=== PATIENT | male | born 1930 | race Caucasian/White ===

== ENCOUNTER 2018-08-09 01:18 | Inpatient (IN) | payer MEDICAID, MEDICARE ==
[2018-08-09] VITALS (22 sets, daily range): BP systolic 85–149; BP diastolic 43–84
[~2018-08-09] VITALS: Ht 175.3 cm; Wt 62.6 kg
[2018-08-09] MEDS ORDERED: DILTIAZEM HCL 50 MG IV ONE (01:50)
[2018-08-09] MEDS ORDERED: DILTIAZEM HCL 25 MG IV ONE (01:51)
[2018-08-09] MEDS ORDERED: DILTIAZEM HCL 50 MG IV IV ONE (02:00)
[2018-08-09] MEDS ORDERED: DILTIAZEM HCL IV 125 MG in IV NS 0.9% 100 ML IV PRN ×2 (02:00→03:00)
[2018-08-09 02:01] LABS: BASOPHILS % (AUTO) 0.5 % (0.0-2.0); EOSINOPHILS % (AUTO) 2.5 % (0.0-6.0); HEMATOCRIT 41 % (39-51); HEMOGLOBIN 13.7 g/dL (13.5-17.5); LYMPHOCYTES % (AUTO) 11.5 % (20.0-44.0); MEAN CORPUSCULAR HGB CONC 34 g/dl (31.0-36.0); MEAN CORPUSCULAR VOLUME 93 fL (80-96); MONOCYTES # (AUTO) 0.7 /CMM (0.1-1.30); MONOCYTES % (AUTO) 7.9 % (2.0-12.0); NEUTROPHILS # (AUTO) 6.6 /CMM (1.8-8.9); NEUTROPHILS % (AUTO) 77.6 % (43.0-81.0); PLATELET COUNT (AUTO) 288 /CMM (150-450); RED BLOOD CELL COUNT(AUTO) 4.41 MIL/uL (4.5-6.0); WHITE BLOOD COUNT (AUTO) 8.4 K/uL (4.3-11.0)
[2018-08-09 02:23] LABS: ALANINE AMINOTRANSFERASE 57 U/L (12-78); ALBUMIN 3.7 g/dL (3.4-5.0); ALKALINE PHOSPHATASE 93 U/L (46-116); ASPARTATE AMINOTRANSFERASE 42 U/L (15-37); B-TYPE NATRIURETIC PEPTIDE 17144 PG/ML (0-125); BILIRUBIN,DIRECT 0.1 mg/dL (0.0-0.2); BILIRUBIN,TOTAL 0.5 mg/dL (0.2-1.0); CALCIUM, SERUM 9.5 mg/dL (8.5-10.1); CARBON DIOXIDE 23 mmol/L (21-32); CHLORIDE 104 mmol/L (98-107); CREATININE 1.5 mg/dL (0.6-1.3); GLUCOSE 156 mg/dL (74-106); POTASSIUM 5.1 mmol/L (3.5-5.1); SODIUM SERUM 140 mmol/L (136-145); TOTAL PROTEIN, SERUM 8.3 g/dL (6.4-8.2); UREA NITROGEN, BLOOD 43 mg/dL (7-18)
[2018-08-09] MEDS ORDERED: IV NS 0.9% 1,000 ML IV PRN (02:39)
[2018-08-09] MEDS ORDERED: LORAZEPAM INJ 2 MG/ML VIAL ONE (02:42)
[2018-08-09] MEDS ORDERED: MAGNESIUM HYDROXIDE 30 ML UDC PO PRN (03:00)
[2018-08-09] MEDS ORDERED: ASPIRIN 325 MG TABLET PO ONE (03:00)
[2018-08-09] MEDS ORDERED: LORAZEPAM INJ 2 MG/ML VIAL IV PRN (03:00)
[2018-08-09] MEDS ORDERED: LORAZEPAM INJ 2 MG/ML VIAL IV ONE (03:00)
[2018-08-09] MEDS ORDERED: ACETAMINOPHEN 325 MG TABLET PO PRN (03:00)
[2018-08-09] MEDS ORDERED: MAG HYDROX/AL HYDROX/SIMETH 30 ML UDC PO PRN (03:00)
[2018-08-09] MEDS ORDERED: ASPIRIN 325 MG TABLET ONE (03:11)
[2018-08-09 03:15] LABS: MAGNESIUM 2.2 mg/dL (1.8-2.4); PHOSPHORUS 3.9 mg/dL (2.5-4.9)
[2018-08-09] MEDS ORDERED: ASPIRIN 300 MG/SUPP.RECT RC ONE ×2 (03:19→03:30)
[2018-08-09] MEDS: PANTOPRAZOLE 40 MG TABLET.DR PO SCH (07:30)
[2018-08-09] MEDS ORDERED: AMIODARONE 900 MG in IV D5W 500 ML IV PRN (09:30)
[2018-08-09] MEDS ORDERED: AMIODARONE 150 MG in IV D5W 100 ML IV ONE (09:30)
[2018-08-09] MEDS ORDERED: ACET-73 PO (09:33)
[2018-08-09] MEDS ORDERED: NA P133E RC (09:33)
[2018-08-09] MEDS ORDERED: ATOR20TA PO (09:33)
[2018-08-09] MEDS ORDERED: FERR325T23 PO (09:33)
[2018-08-09] MEDS ORDERED: ACET325T53 PO (09:33)
[2018-08-09] MEDS ORDERED: MULT-213 PO (09:33)
[2018-08-09] MEDS ORDERED: BISA10SU61 RC (09:33)
[2018-08-09] MEDS ORDERED: LISI10TA5 PO (09:33)
[2018-08-09] MEDS ORDERED: MAGN400O6 PO (09:33)
[2018-08-09] MEDS ORDERED: AMIODARONE 900 MG in IV D5W 482 ML IV PRN ×4 (11:00)
[2018-08-09 12:28] LABS: ABG BASE EXCESS -6.1 mmol/L; ABG OXYGEN SATURATION 91.7 % (92.0-98.5); ABG PCO2 29.5 mmHg (35.0-45.0); ABG PH 7.392 (7.350-7.450); ABG PO2 67.7 mmHg (75.0-100.0); AaDO2 125.9 mmHg; MetHb 0.1 % (0.0-1.5); O2Hb 90.7 % (94.0-97.0); SITE, ABG Right Radial; VENT MODE, BG NASAL CANNULA
[2018-08-09] MEDS ORDERED: HEPARIN SODIUM, PORCINE 5000 UNITS/1 ML VIAL SQ SCH (13:00)
[2018-08-09] MEDS ORDERED: IOHEXOL-350 100 ML VIAL IV ONE (13:20)
[2018-08-09] MEDS ORDERED: IV NS 0.9% 250 ML IV ONE (13:20)
[2018-08-09] MEDS: IV D5/ 0.9% NACL 1,000 ML IV PRN (13:58)
[2018-08-09] MEDS ORDERED: ENOXAPARIN SODIUM 60 MG/0.6 ML DISP.SYRIN SQ SCH (14:00)
[2018-08-09] MEDS: LEVOFLOXACIN 750 MG /D5W 150ML 150 ML IV SCH (16:00)
[2018-08-09] MEDS: ONDANSETRON HCL/PF 4 MG/2 ML VIAL IVP PRN (20:09)
[2018-08-10] VITALS (33 sets, daily range): BP systolic 97–164; BP diastolic 46–77
[2018-08-10] MEDS: IV D5/ 0.9% NACL 1,000 ML IV PRN (01:07)
[2018-08-10 04:48] LABS: BASOPHILS % (AUTO) 0.3 % (0.0-2.0); HEMATOCRIT 39 % (39-51); HEMOGLOBIN 12.5 g/dL (13.5-17.5); LYMPHOCYTES # (AUTO) 0.3 /CMM (0.8-4.8); LYMPHOCYTES % (AUTO) 1.6 % (20.0-44.0); MEAN CORPUSCULAR HGB CONC 32 g/dl (31.0-36.0); MEAN CORPUSCULAR VOLUME 94 fL (80-96); MONOCYTES # (AUTO) 1.4 /CMM (0.1-1.30); NEUTROPHILS # (AUTO) 14.3 /CMM (1.8-8.9); NEUTROPHILS % (AUTO) 89.1 % (43.0-81.0); PLATELET COUNT (AUTO) 169 /CMM (150-450); RED BLOOD CELL COUNT(AUTO) 4.13 MIL/uL (4.5-6.0)
[2018-08-10 05:26] LABS: ALBUMIN 3.1 g/dL (3.4-5.0); ALKALINE PHOSPHATASE 75 U/L (46-116); BILIRUBIN,TOTAL 1.1 mg/dL (0.2-1.0); CALCIUM, SERUM 8.6 mg/dL (8.5-10.1); CARBON DIOXIDE 16 mmol/L (21-32); CHLORIDE 106 mmol/L (98-107); CREATININE 2.7 mg/dL (0.6-1.3); GLUCOSE 197 mg/dL (74-106); MAGNESIUM 2.4 mg/dL (1.8-2.4); PHOSPHORUS 5.7 mg/dL (2.5-4.9); POTASSIUM 6.1 mmol/L (3.5-5.1); SODIUM SERUM 138 mmol/L (136-145); TOTAL PROTEIN, SERUM 6.9 g/dL (6.4-8.2); UREA NITROGEN, BLOOD 53 mg/dL (7-18)
[2018-08-10 05:48] LABS: ALANINE AMINOTRANSFERASE 1547 U/L (12-78); ASPARTATE AMINOTRANSFERASE 2963 U/L (15-37)
[2018-08-10] MEDS: PANTOPRAZOLE 40 MG TABLET.DR PO SCH (07:30)
[2018-08-10 07:56] LABS: ABG BASE EXCESS -12.1 mmol/L; ABG OXYGEN SATURATION 95.5 % (92.0-98.5); ABG PCO2 25.7 mmHg (35.0-45.0); ABG PH 7.306 (7.350-7.450); ABG PO2 90.2 mmHg (75.0-100.0); AaDO2 107.9 mmHg; COHb 0.4 % (0.5-1.5); MetHb 0.5 % (0.0-1.5); O2Hb 94.6 % (94.0-97.0); SITE, ABG Right Femoral; VENT MODE, BG 3LNC
[2018-08-10] MEDS: HEPARIN SODIUM, PORCINE 5000 UNITS/1 ML VIAL SQ SCH ×2 (09:26→23:45)
[2018-08-10] MEDS ORDERED: IV NS 0.9% 1,000 ML IV PRN (09:30)
[2018-08-10] MEDS ORDERED: FUROSEMIDE 100 MG/10 ML VIAL IV ONE (10:30)
[2018-08-10] MEDS: ONDANSETRON HCL/PF 4 MG/2 ML VIAL IVP PRN (10:32)
[2018-08-10] MEDS ORDERED: SODIUM POLYSTYRENE SULFONATE 15 G/60 ML BOTTLE PO ONE (11:00)
[2018-08-10] MEDS: Sodium Bicarbonate 100 MEQ in IV 1/2NS 1000 ML 1,000 ML IV PRN ×2 (12:33→22:38)
[2018-08-10 13:39] LABS: ABG BASE EXCESS -9.9 mmol/L; ABG OXYGEN SATURATION 94.2 % (92.0-98.5); ABG PCO2 28.5 mmHg (35.0-45.0); ABG PH 7.329 (7.350-7.450); ABG PO2 82.8 mmHg (75.0-100.0); AaDO2 83.2 mmHg; COHb 0.4 % (0.5-1.5); MetHb 0.4 % (0.0-1.5); O2Hb 93.4 % (94.0-97.0); SITE, ABG Right Radial; VENT MODE, BG 2LNC
[2018-08-10 14:01] LABS: APPEARANCE,URINE TURBID (CLEAR); BILIRUBIN,URINE NEGATIVE (NEGATIVE); BLOOD, URINE 3+ Ery/uL (NEGATIVE); COLOR,URINE DARK YELLO (YELLOW); KETONES,URINE 1+ (NEGATIVE); LEUKOCYTE ESTERASE ,URINE TRACE (NEGATIVE); NITRITE, URINE POSITIVE (NEGATIVE); PH,URINE 5.5 (5.0-8.0); PROTEIN,URINE 3+ mg/dl (NEGATIVE); UGLUCOSE NEGATIVE (NEGATIVE)
[2018-08-10 14:26] LABS: CALCIUM, SERUM 8.7 mg/dL (8.5-10.1); CARBON DIOXIDE 15 mmol/L (21-32); CHLORIDE 106 mmol/L (98-107); CREATININE 3.2 mg/dL (0.6-1.3); GLUCOSE 125 mg/dL (74-106); SODIUM SERUM 140 mmol/L (136-145); UREA NITROGEN, BLOOD 64 mg/dL (7-18)
[2018-08-10 14:27] LABS: POTASSIUM 6.6 mmol/L (3.5-5.1)
[2018-08-10 14:27] LABS: CREATININE, URINE 35.5 MG/DL (30.0-125.0); URINE TOTAL PROTEIN 323.9 mg/dL (0-11.9)
[2018-08-10 15:58] LABS: BACTERIA,URINE Few /HPF (None Seen); RBC,URINE TOO NUMEROUS TO COUN /HPF (0-2); SQUAMOUS EPITHELIAL CELL,UR Rare /HPF (None Seen)
[2018-08-10 17:24] LABS: EOSINOPHIL,URINE None Seen
[2018-08-10] MEDS ORDERED: SODIUM BICARBONATE SYR 50 MEQ/50 ML DISP.SYRIN ONE (22:14)
[2018-08-11] VITALS (39 sets, daily range): BP systolic 110–164; BP diastolic 37–119
[2018-08-11 04:46] LABS: BASOPHILS % (AUTO) 0.2 % (0.0-2.0); HEMATOCRIT 32 % (39-51); HEMOGLOBIN 10.8 g/dL (13.5-17.5); LYMPHOCYTES # (AUTO) 0.4 /CMM (0.8-4.8); LYMPHOCYTES % (AUTO) 2.9 % (20.0-44.0); MEAN CORPUSCULAR HGB CONC 33 g/dl (31.0-36.0); MEAN CORPUSCULAR VOLUME 92 fL (80-96); MONOCYTES # (AUTO) 0.8 /CMM (0.1-1.30); MONOCYTES % (AUTO) 5.8 % (2.0-12.0); NEUTROPHILS # (AUTO) 12.8 /CMM (1.8-8.9); NEUTROPHILS % (AUTO) 91.1 % (43.0-81.0); PLATELET COUNT (AUTO) 110 /CMM (150-450); RED BLOOD CELL COUNT(AUTO) 3.52 MIL/uL (4.5-6.0)
[2018-08-11 04:56] LABS: CREATINE KINASE, TOTAL 300 U/L (39-308)
[2018-08-11 05:00] LABS: ALBUMIN 2.9 g/dL (3.4-5.0); ALKALINE PHOSPHATASE 72 U/L (46-116); BILIRUBIN,TOTAL 0.9 mg/dL (0.2-1.0); CALCIUM, SERUM 7.8 mg/dL (8.5-10.1); CARBON DIOXIDE 26 mmol/L (21-32); CHLORIDE 103 mmol/L (98-107); CREATININE 2.8 mg/dL (0.6-1.3); GLUCOSE 97 mg/dL (74-106); MAGNESIUM 1.9 mg/dL (1.8-2.4); PHOSPHORUS 4.6 mg/dL (2.5-4.9); SODIUM SERUM 140 mmol/L (136-145); TOTAL PROTEIN, SERUM 5.8 g/dL (6.4-8.2); UREA NITROGEN, BLOOD 50 mg/dL (7-18)
[2018-08-11 05:23] LABS: ALANINE AMINOTRANSFERASE 6330 U/L (12-78); ASPARTATE AMINOTRANSFERASE 13232 U/L (15-37)
[2018-08-11] MEDS ORDERED: Z GUARD REMEDY 2 OZ OINT TP PRN (08:30)
[2018-08-11 08:35] LABS: ABG BASE EXCESS 3.2 mmol/L; ABG PCO2 35.3 mmHg (35.0-45.0); ABG PH 7.491 (7.350-7.450); ABG PO2 76.3 mmHg (75.0-100.0); AaDO2 81.7 mmHg; COHb 0.4 % (0.5-1.5); MetHb 0.7 % (0.0-1.5); SITE, ABG Right Radial; VENT MODE, BG nasal cannula
[2018-08-11] MEDS: PANTOPRAZOLE 40 MG TABLET.DR PO SCH (08:53)
[2018-08-11] MEDS: HEPARIN SODIUM, PORCINE 5000 UNITS/1 ML VIAL SQ SCH ×2 (08:54→22:17)
[2018-08-11] MEDS: Z GUARD REMEDY 2 OZ OINT TP SCH (08:55)
[2018-08-11 12:35] LABS: ABG BASE EXCESS -0.1 mmol/L; ABG OXYGEN SATURATION 95.3 % (92.0-98.5); ABG PCO2 35.5 mmHg (35.0-45.0); ABG PH 7.442 (7.350-7.450); ABG PO2 85.8 mmHg (75.0-100.0); COHb 0.5 % (0.5-1.5); MetHb 0.6 % (0.0-1.5); O2Hb 94.3 % (94.0-97.0); SITE, ABG Right Radial; VENT MODE, BG NASAL CANNULA
[2018-08-11] MEDS: LEVOFLOXACIN 750 MG /D5W 150ML 150 ML IV SCH (14:13)
[2018-08-12] VITALS (34 sets, daily range): BP systolic 119–161; BP diastolic 44–109
[2018-08-12 05:12] LABS: BASOPHILS % (AUTO) 0.1 % (0.0-2.0); EOSINOPHILS % (AUTO) 0.3 % (0.0-6.0); HEMATOCRIT 34 % (39-51); HEMOGLOBIN 11.3 g/dL (13.5-17.5); LYMPHOCYTES # (AUTO) 0.3 /CMM (0.8-4.8); LYMPHOCYTES % (AUTO) 3.3 % (20.0-44.0); MEAN CORPUSCULAR HGB CONC 34 g/dl (31.0-36.0); MEAN CORPUSCULAR VOLUME 92 fL (80-96); MONOCYTES # (AUTO) 0.7 /CMM (0.1-1.30); MONOCYTES % (AUTO) 7.4 % (2.0-12.0); NEUTROPHILS # (AUTO) 8.6 /CMM (1.8-8.9); NEUTROPHILS % (AUTO) 88.9 % (43.0-81.0); PLATELET COUNT (AUTO) 66 /CMM (150-450); RED BLOOD CELL COUNT(AUTO) 3.67 MIL/uL (4.5-6.0); WHITE BLOOD COUNT (AUTO) 9.7 K/uL (4.3-11.0)
[2018-08-12 05:29] LABS: ALBUMIN 2.7 g/dL (3.4-5.0); ALKALINE PHOSPHATASE 77 U/L (46-116); ASPARTATE AMINOTRANSFERASE 1890 U/L (15-37); BILIRUBIN,TOTAL 1.1 mg/dL (0.2-1.0); CALCIUM, SERUM 7.6 mg/dL (8.5-10.1); CARBON DIOXIDE 27 mmol/L (21-32); CHLORIDE 104 mmol/L (98-107); CREATININE 2.3 mg/dL (0.6-1.3); GLUCOSE 95 mg/dL (74-106); PHOSPHORUS 3.1 mg/dL (2.5-4.9); SODIUM SERUM 140 mmol/L (136-145); TOTAL PROTEIN, SERUM 5.6 g/dL (6.4-8.2); UREA NITROGEN, BLOOD 44 mg/dL (7-18)
[2018-08-12 06:14] LABS: BAND % (MANUAL) 1 % (0.0-5.0); LYMPHOCYTES % (MANUAL) 3 % (16-48); MONOCYTES % (MANUAL) 3 % (0-11.0); MYELOCYTES % 1 % (0-0); NEUTROPHILS % (MANUAL) 92 (42-76)
[2018-08-12 06:37] LABS: ALANINE AMINOTRANSFERASE 3818 U/L (12-78)
[2018-08-12] MEDS: PANTOPRAZOLE 40 MG TABLET.DR PO SCH (08:21)
[2018-08-12] MEDS: Z GUARD REMEDY 2 OZ OINT TP SCH (09:30)
[2018-08-12] MEDS: HEPARIN SODIUM, PORCINE 5000 UNITS/1 ML VIAL SQ SCH ×2 (09:30→20:54)
[2018-08-12] MEDS: GLUCERNA SHAKE 237 ML CAN PO SCH (20:55)
[2018-08-13] VITALS (47 sets, daily range): BP systolic 99–168; BP diastolic 48–106
[2018-08-13] MEDS ORDERED: DILTIAZEM HCL 50 MG IV ONE ×2 (00:21→01:40)
[2018-08-13] MEDS ORDERED: DILTIAZEM HCL IV 125 MG in IV D5W 100 ML IV PRN (00:30)
[2018-08-13] MEDS ORDERED: DILTIAZEM HCL 25 MG IV IV ONE (00:30)
[2018-08-13] MEDS ORDERED: LORAZEPAM INJ 2 MG/ML VIAL IV ONE (00:30)
[2018-08-13] MEDS ORDERED: DILTIAZEM HCL 25 MG IV ONE ×2 (01:37→01:40)
[2018-08-13 04:36] LABS: BASOPHILS % (AUTO) 0.1 % (0.0-2.0); EOSINOPHILS % (AUTO) 1.9 % (0.0-6.0); HEMATOCRIT 34 % (39-51); HEMOGLOBIN 11.5 g/dL (13.5-17.5); LYMPHOCYTES # (AUTO) 0.4 /CMM (0.8-4.8); MEAN CORPUSCULAR HGB CONC 34 g/dl (31.0-36.0); MEAN CORPUSCULAR VOLUME 92 fL (80-96); MONOCYTES # (AUTO) 0.8 /CMM (0.1-1.30); MONOCYTES % (AUTO) 10.5 % (2.0-12.0); NEUTROPHILS # (AUTO) 5.9 /CMM (1.8-8.9); NEUTROPHILS % (AUTO) 82.5 % (43.0-81.0); RED BLOOD CELL COUNT(AUTO) 3.72 MIL/uL (4.5-6.0); WHITE BLOOD COUNT (AUTO) 7.2 K/uL (4.3-11.0)
[2018-08-13 04:58] LABS: CALCIUM, SERUM 7.7 mg/dL (8.5-10.1); CARBON DIOXIDE 28 mmol/L (21-32); CHLORIDE 106 mmol/L (98-107); CREATININE 1.6 mg/dL (0.6-1.3); GLUCOSE 111 mg/dL (74-106); MAGNESIUM 1.9 mg/dL (1.8-2.4); PHOSPHORUS 2.4 mg/dL (2.5-4.9); POTASSIUM 3.8 mmol/L (3.5-5.1); SODIUM SERUM 142 mmol/L (136-145); UREA NITROGEN, BLOOD 33 mg/dL (7-18)
[2018-08-13 05:05] LABS: PLATELET COUNT (AUTO) 42 /CMM (150-450)
[2018-08-13 05:11] LABS: BAND % (MANUAL) 2 % (0.0-5.0); EOSINOPHILS % (MANUAL) 3 % (0-4); LYMPHOCYTES % (MANUAL) 5 % (16-48); MONOCYTES % (MANUAL) 10 % (0-11.0); NEUTROPHILS % (MANUAL) 80 (42-76)
[2018-08-13] MEDS: GLUCERNA SHAKE 237 ML CAN PO SCH ×3 (08:00→16:27)
[2018-08-13] MEDS: PANTOPRAZOLE 40 MG TABLET.DR PO SCH (08:28)
[2018-08-13] MEDS: Z GUARD REMEDY 2 OZ OINT TP SCH (08:30)
[2018-08-13] MEDS: HEPARIN SODIUM, PORCINE 5000 UNITS/1 ML VIAL SQ SCH (08:36)
[2018-08-13] MEDS: NITROGLYCERIN 30 GM TUBE TP SCH ×2 (09:00→20:48)
[2018-08-13 10:57] LABS: ALBUMIN 2.6 g/dL (3.4-5.0); BILIRUBIN,DIRECT 0.5 mg/dL (0.0-0.2); BILIRUBIN,TOTAL 1.5 mg/dL (0.2-1.0); TOTAL PROTEIN, SERUM 5.6 g/dL (6.4-8.2)
[2018-08-13] MEDS: DIGOXIN INJ 0.5 MG/2 ML AMPUL IV SCH ×3 (11:56→23:42)
[2018-08-13] MEDS: LEVOFLOXACIN 750 MG /D5W 150ML 150 ML IV SCH (13:51)
[2018-08-13] MEDS ORDERED: QUETIAPINE FUMARATE 25 MG TABLET PO PRN (15:30)
[2018-08-13] MEDS ORDERED: K PHOS NEUTRAL 250 MG TABLET PO ONE ×2 (16:00→16:30)
[2018-08-14] VITALS (28 sets, daily range): BP systolic 87–157; BP diastolic 48–96
[2018-08-14] MEDS ORDERED: DILTIAZEM HCL 50 MG IV IV ONE (01:00)
[2018-08-14 04:42] LABS: BASOPHILS % (AUTO) 0.2 % (0.0-2.0); EOSINOPHILS % (AUTO) 5.1 % (0.0-6.0); HEMATOCRIT 35 % (39-51); HEMOGLOBIN 11.7 g/dL (13.5-17.5); LYMPHOCYTES # (AUTO) 0.4 /CMM (0.8-4.8); LYMPHOCYTES % (AUTO) 7.8 % (20.0-44.0); MEAN CORPUSCULAR HGB CONC 33 g/dl (31.0-36.0); MEAN CORPUSCULAR VOLUME 92 fL (80-96); NEUTROPHILS % (AUTO) 68.9 % (43.0-81.0); RED BLOOD CELL COUNT(AUTO) 3.82 MIL/uL (4.5-6.0); WHITE BLOOD COUNT (AUTO) 5.8 K/uL (4.3-11.0)
[2018-08-14 04:53] LABS: PLATELET COUNT (AUTO) 47 /CMM (150-450)
[2018-08-14 04:56] LABS: ALBUMIN 2.5 g/dL (3.4-5.0); ALKALINE PHOSPHATASE 75 U/L (46-116); ASPARTATE AMINOTRANSFERASE 272 U/L (15-37); BILIRUBIN,TOTAL 1.8 mg/dL (0.2-1.0); CALCIUM, SERUM 7.7 mg/dL (8.5-10.1); CARBON DIOXIDE 29 mmol/L (21-32); CHLORIDE 108 mmol/L (98-107); CREATININE 1.6 mg/dL (0.6-1.3); GLUCOSE 105 mg/dL (74-106); MAGNESIUM 1.8 mg/dL (1.8-2.4); PHOSPHORUS 2.5 mg/dL (2.5-4.9); POTASSIUM 3.6 mmol/L (3.5-5.1); SODIUM SERUM 144 mmol/L (136-145); TOTAL PROTEIN, SERUM 5.4 g/dL (6.4-8.2); UREA NITROGEN, BLOOD 34 mg/dL (7-18)
[2018-08-14 05:29] LABS: ALANINE AMINOTRANSFERASE 1374 U/L (12-78)
[2018-08-14 05:33] LABS: BAND % (MANUAL) 1 % (0.0-5.0); LYMPHOCYTES % (MANUAL) 4 % (16-48); MONOCYTES % (MANUAL) 3 % (0-11.0); NEUTROPHILS % (MANUAL) 92 (42-76)
[2018-08-14] MEDS ORDERED: BUMETANIDE INJ 8 MG in IV NS 0.9% 48 ML IV ONE (08:00)
[2018-08-14] MEDS: PANTOPRAZOLE 40 MG TABLET.DR PO SCH (08:23)
[2018-08-14] MEDS: GLUCERNA SHAKE 237 ML CAN PO SCH (08:24)
[2018-08-14] MEDS: DILTIAZEM HCL CD 240 MG PO SCH (08:24)
[2018-08-14] MEDS: POTASSIUM CL. PREMIX PERIPHER. 50 ML IV SCH ×4 (08:51→11:34)
[2018-08-14] MEDS: NITROGLYCERIN 30 GM TUBE TP SCH ×2 (09:16→22:09)
[2018-08-14] MEDS: Z GUARD REMEDY 2 OZ OINT TP SCH (09:17)
[2018-08-14] MEDS ORDERED: IV NS 0.9% 250 ML IV ONE (09:30)
[2018-08-14] MEDS ORDERED: NEPRO VAN 237 ML CAN PO PRN (13:30)
[2018-08-15] VITALS: BP 130/58
[2018-08-15 04:00] VITALS: BP 149/57
[2018-08-15 06:10] LABS: *SPE ALPHA-1-GLOBULIN 0.3 g/dL (0.0-0.4); *SPE ALPHA-2-GLOBULIN 0.7 g/dL (0.4-1.0); *SPE BETA GLOBULIN 0.6 g/dL (0.7-1.3); *SPE GLOBULIN, TOTAL 2.9 g/dL (2.2-3.9); *SPE M-SPIKE 0.6 g/dL (Not Observed); *SPEGAMMA GLOBULIN 1.3 g/dL (0.4-1.8)
[2018-08-15 07:10] LABS: COMPLEMENT C3, SERUM 30 mg/dL (82-167); COMPLEMENT C4, SERUM <2 mg/dL (14-44)
[2018-08-15 07:34] LABS: BASOPHILS % (AUTO) 0.3 % (0.0-2.0); EOSINOPHILS % (AUTO) 2.4 % (0.0-6.0); HEMATOCRIT 37 % (39-51); HEMOGLOBIN 12.1 g/dL (13.5-17.5); LYMPHOCYTES # (AUTO) 0.5 /CMM (0.8-4.8); LYMPHOCYTES % (AUTO) 4.7 % (20.0-44.0); MEAN CORPUSCULAR HGB CONC 33 g/dl (31.0-36.0); MEAN CORPUSCULAR VOLUME 92 fL (80-96); MONOCYTES # (AUTO) 1.4 /CMM (0.1-1.30); MONOCYTES % (AUTO) 12.1 % (2.0-12.0); NEUTROPHILS # (AUTO) 9.1 /CMM (1.8-8.9); NEUTROPHILS % (AUTO) 80.5 % (43.0-81.0); RED BLOOD CELL COUNT(AUTO) 3.99 MIL/uL (4.5-6.0); WHITE BLOOD COUNT (AUTO) 11.3 K/uL (4.3-11.0)
[2018-08-15 07:52] LABS: PLATELET COUNT (AUTO) 40 /CMM (150-450)
[2018-08-15 08:00] VITALS: BP 143/47
[2018-08-15 08:04] LABS: ALANINE AMINOTRANSFERASE 852 U/L (12-78); ALBUMIN 2.6 g/dL (3.4-5.0); ALKALINE PHOSPHATASE 73 U/L (46-116); ASPARTATE AMINOTRANSFERASE 119 U/L (15-37); BILIRUBIN,TOTAL 1.6 mg/dL (0.2-1.0); CALCIUM, SERUM 7.6 mg/dL (8.5-10.1); CARBON DIOXIDE 30 mmol/L (21-32); CHLORIDE 106 mmol/L (98-107); CREATININE 1.4 mg/dL (0.6-1.3); GLUCOSE 120 mg/dL (74-106); PHOSPHORUS 2.3 mg/dL (2.5-4.9); POTASSIUM 3.4 mmol/L (3.5-5.1); SODIUM SERUM 145 mmol/L (136-145); TOTAL PROTEIN, SERUM 5.7 g/dL (6.4-8.2); UREA NITROGEN, BLOOD 28 mg/dL (7-18)
[2018-08-15 08:14] LABS: BAND % (MANUAL) 2 % (0.0-5.0); EOSINOPHILS % (MANUAL) 2 % (0-4); LYMPHOCYTES % (MANUAL) 1 % (16-48); MONOCYTES % (MANUAL) 7 % (0-11.0); NEUTROPHILS % (MANUAL) 88 (42-76)
[2018-08-15 08:15] LABS: MAGNESIUM 1.4 mg/dL (1.8-2.4)
[2018-08-15] MEDS: NITROGLYCERIN 30 GM TUBE TP SCH ×2 (08:56→22:39)
[2018-08-15] MEDS: DILTIAZEM HCL CD 240 MG PO SCH (08:57)
[2018-08-15] MEDS: PANTOPRAZOLE 40 MG TABLET.DR PO SCH (08:58)
[2018-08-15] MEDS: FUROSEMIDE 40 MG TABLET PO SCH (09:37)
[2018-08-15] MEDS: POTASSIUM CHLORIDE 20 MEQ TAB.PRT.SR PO SCH (09:37)
[2018-08-15] MEDS ORDERED: K PHOS NEUTRAL 250 MG TABLET PO ONE (10:30)
[2018-08-15] MEDS: Magnesium 1GM/D5W 100ML PREMIX 100 ML IV SCH ×4 (10:59→15:59)
[2018-08-15] MEDS: Z GUARD REMEDY 2 OZ OINT TP SCH (11:01)
[2018-08-15 12:00] VITALS: BP 142/50
[2018-08-15 16:00] VITALS: BP 122/55
[2018-08-15 20:00] VITALS: BP_SYST 136; BP_SYST 145; BP_DIAS 43; BP_DIAS 46
[2018-08-16] VITALS: BP 145/43
[2018-08-16 04:00] VITALS: BP 151/49
[2018-08-16 07:07] LABS: BASOPHILS % (AUTO) 0.2 % (0.0-2.0); EOSINOPHILS % (AUTO) 1.1 % (0.0-6.0); HEMATOCRIT 38 % (39-51); HEMOGLOBIN 12.4 g/dL (13.5-17.5); LYMPHOCYTES # (AUTO) 0.7 /CMM (0.8-4.8); LYMPHOCYTES % (AUTO) 5.6 % (20.0-44.0); MEAN CORPUSCULAR HGB CONC 33 g/dl (31.0-36.0); MEAN CORPUSCULAR VOLUME 92 fL (80-96); MONOCYTES # (AUTO) 1.4 /CMM (0.1-1.30); MONOCYTES % (AUTO) 11.8 % (2.0-12.0); NEUTROPHILS # (AUTO) 9.8 /CMM (1.8-8.9); NEUTROPHILS % (AUTO) 81.3 % (43.0-81.0); PLATELET COUNT (AUTO) 56 /CMM (150-450); RED BLOOD CELL COUNT(AUTO) 4.12 MIL/uL (4.5-6.0); WHITE BLOOD COUNT (AUTO) 12.1 K/uL (4.3-11.0)
[2018-08-16 07:51] LABS: EOSINOPHILS % (MANUAL) 1 % (0-4); LYMPHOCYTES % (MANUAL) 5 % (16-48); MONOCYTES % (MANUAL) 8 % (0-11.0); NEUTROPHILS % (MANUAL) 86 (42-76)
[2018-08-16 07:55] LABS: ALANINE AMINOTRANSFERASE 648 U/L (12-78); ALBUMIN 2.9 g/dL (3.4-5.0); ALKALINE PHOSPHATASE 80 U/L (46-116); ASPARTATE AMINOTRANSFERASE 83 U/L (15-37); BILIRUBIN,DIRECT 0.5 mg/dL (0.0-0.2); BILIRUBIN,TOTAL 1.6 mg/dL (0.2-1.0); CARBON DIOXIDE 31 mmol/L (21-32); CHLORIDE 102 mmol/L (98-107); CREATININE 1.6 mg/dL (0.6-1.3); GLUCOSE 132 mg/dL (74-106); PHOSPHORUS 2.3 mg/dL (2.5-4.9); POTASSIUM 2.9 mmol/L (3.5-5.1); SODIUM SERUM 143 mmol/L (136-145); TOTAL PROTEIN, SERUM 6.5 g/dL (6.4-8.2); UREA NITROGEN, BLOOD 27 mg/dL (7-18)
[2018-08-16 08:00] VITALS: BP 169/53
[2018-08-16] MEDS: POTASSIUM CHLORIDE 20 MEQ TAB.PRT.SR PO SCH ×6 (08:30→14:10)
[2018-08-16] MEDS: DILTIAZEM HCL CD 240 MG PO SCH (08:32)
[2018-08-16] MEDS: PANTOPRAZOLE 40 MG TABLET.DR PO SCH (08:32)
[2018-08-16] MEDS: FUROSEMIDE 40 MG TABLET PO SCH (08:32)
[2018-08-16] MEDS: Z GUARD REMEDY 2 OZ OINT TP SCH (08:37)
[2018-08-16] MEDS: NEUTRA PHOS 1 POWD.PACKET PO SCH ×2 (09:27→17:53)
[2018-08-16] MEDS: NITROGLYCERIN 30 GM TUBE TP SCH ×2 (09:27→21:12)
[2018-08-16] MEDS ORDERED: DIGOXIN 0.125 MG TABLET PO ONE (09:30)
[2018-08-16 12:00] VITALS: BP 133/47
[2018-08-16 16:00] VITALS: BP 150/51
[2018-08-16 20:00] VITALS: BP 150/82
[2018-08-17] VITALS: BP 139/60
[2018-08-17 04:00] VITALS: BP 145/68
[2018-08-17 06:31] LABS: BASOPHILS % (AUTO) 0.2 % (0.0-2.0); EOSINOPHILS % (AUTO) 1.1 % (0.0-6.0); HEMATOCRIT 36 % (39-51); HEMOGLOBIN 11.9 g/dL (13.5-17.5); LYMPHOCYTES # (AUTO) 0.7 /CMM (0.8-4.8); LYMPHOCYTES % (AUTO) 6.5 % (20.0-44.0); MEAN CORPUSCULAR HGB CONC 33 g/dl (31.0-36.0); MEAN CORPUSCULAR VOLUME 92 fL (80-96); MONOCYTES # (AUTO) 1.6 /CMM (0.1-1.30); MONOCYTES % (AUTO) 14.5 % (2.0-12.0); NEUTROPHILS # (AUTO) 8.3 /CMM (1.8-8.9); NEUTROPHILS % (AUTO) 77.7 % (43.0-81.0); PLATELET COUNT (AUTO) 78 /CMM (150-450); RED BLOOD CELL COUNT(AUTO) 3.94 MIL/uL (4.5-6.0); WHITE BLOOD COUNT (AUTO) 10.7 K/uL (4.3-11.0)
[2018-08-17 06:53] LABS: ALANINE AMINOTRANSFERASE 453 U/L (12-78); ALBUMIN 2.8 g/dL (3.4-5.0); ALKALINE PHOSPHATASE 78 U/L (46-116); ASPARTATE AMINOTRANSFERASE 56 U/L (15-37); BILIRUBIN,TOTAL 1.5 mg/dL (0.2-1.0); CALCIUM, SERUM 8.2 mg/dL (8.5-10.1); CARBON DIOXIDE 31 mmol/L (21-32); CHLORIDE 107 mmol/L (98-107); CREATININE 1.4 mg/dL (0.6-1.3); GLUCOSE 127 mg/dL (74-106); MAGNESIUM 1.8 mg/dL (1.8-2.4); PHOSPHORUS 2.7 mg/dL (2.5-4.9); POTASSIUM 3.9 mmol/L (3.5-5.1); SODIUM SERUM 145 mmol/L (136-145); TOTAL PROTEIN, SERUM 6.3 g/dL (6.4-8.2); UREA NITROGEN, BLOOD 21 mg/dL (7-18)
[2018-08-17 07:44] LABS: EOSINOPHILS % (MANUAL) 1 % (0-4); LYMPHOCYTES % (MANUAL) 4 % (16-48); MONOCYTES % (MANUAL) 8 % (0-11.0); NEUTROPHILS % (MANUAL) 87 (42-76)
[2018-08-17 08:00] VITALS: BP 156/72
[2018-08-17] MEDS: DILTIAZEM HCL CD 240 MG PO SCH (08:17)
[2018-08-17] MEDS: PANTOPRAZOLE 40 MG TABLET.DR PO SCH (08:17)
[2018-08-17] MEDS: NITROGLYCERIN 30 GM TUBE TP SCH (08:23)
[2018-08-17] MEDS: Z GUARD REMEDY 2 OZ OINT TP SCH (08:28)
[2018-08-17] MEDS ORDERED: FUROSEMIDE 40 MG TABLET PO SCH (10:30)
[2018-08-17] MEDS ORDERED: VALSARTAN 80 MG TABLET PO SCH (10:30)
[2018-08-17 12:00] VITALS: BP 149/63
[2018-08-17 16:00] VITALS: BP 140/68
[2018-08-17 20:00] VITALS: BP 137/69
== END 2018-08-17 23:29 | DRG 177 ==
LOC: ER 01:27 → TELE-TD 03:29 → ICU 12:45 → TELE-TD 08-14 19:32 → TELE1 08-15 09:40
PROVIDERS: ADMIT Nurse Practitioner Acute Care; ATTEND Hospitalist
PROC: 5A1D70Z Performance of Urinary Filtration, Intermittent, Less than 6 Hours Per Day (ICD-10-PCS; principal; 2018-08-10)
PROC: 5A1D70Z Performance of Urinary Filtration, Intermittent, Less than 6 Hours Per Day (ICD-10-PCS; 2018-08-11)
PROC: 06HM33Z Insertion of Infusion Device into Right Femoral Vein, Percutaneous Approach (ICD-10-PCS; 2018-08-11)
PROC: B54BZZA Ultrasonography of Right Lower Extremity Veins, Guidance (ICD-10-PCS; 2018-08-11)
PROC: 5A1D70Z Performance of Urinary Filtration, Intermittent, Less than 6 Hours Per Day (ICD-10-PCS; 2018-08-12)
PROC: 5A1D70Z Performance of Urinary Filtration, Intermittent, Less than 6 Hours Per Day (ICD-10-PCS; 2018-08-14)
PROC: 5A1D70Z Performance of Urinary Filtration, Intermittent, Less than 6 Hours Per Day (ICD-10-PCS; 2018-08-15)
DX: J15.6 Pneumonia due to other Gram-negative bacteria (principal); N17.0 Acute kidney failure with tubular necrosis; K72.00 Acute and subacute hepatic failure without coma; J96.01 Acute respiratory failure with hypoxia; I21.A1 Myocardial infarction type 2; G92 Toxic encephalopathy; I13.0 Hypertensive heart and chronic kidney disease with heart failure and stage 1 through stage 4 chronic kidney disease, or unspecified chronic kidney disease; E87.4 Mixed disorder of acid-base balance; I48.91 Unspecified atrial fibrillation; E86.0 Dehydration; I50.9 Heart failure, unspecified; J44.9 Chronic obstructive pulmonary disease, unspecified; E78.5 Hyperlipidemia, unspecified; F03.90 Unspecified dementia, unspecified severity, without behavioral disturbance, psychotic disturbance, mood disturbance, and anxiety; D69.6 Thrombocytopenia, unspecified; N18.1 Chronic kidney disease, stage 1; M19.90 Unspecified osteoarthritis, unspecified site; D64.9 Anemia, unspecified; Z79.899 Other long term (current) drug therapy; R73.9 Hyperglycemia, unspecified; R26.9 Unspecified abnormalities of gait and mobility; E87.5 Hyperkalemia; L85.9 Epidermal thickening, unspecified; F09 Unspecified mental disorder due to known physiological condition; E87.6 Hypokalemia; T46.2X5A Adverse effect of other antidysrhythmic drugs, initial encounter; Y92.129 Unspecified place in nursing home as the place of occurrence of the external cause
CPT/HCPCS: 36415; 36600; 70450-TC; 71045-TC; 76700-TC; 76770-TC; 80048-TC; 80053-TC; 80061-TC; 80076-TC; 81000-TC; 82140-TC; 82550-TC; 82570-TC; 82803-TC; 83735-TC; 83880; 83970; 84100-TC; 84155; 84155-TC; 84165; 84300-TC; 84484-TC; 85025-TC; 85652-TC; 85730-TC; 86022; 86704; 86705; 86706; 86803; 87040-TC; 87081-TC; 87086-TC; 87340; 90935-TC; 92526; 92611-TC; 93307-TC; 93970-TC; A4216; A6402; C1750; G0378; J0282; J1160; J1644; J1650; J1940; J1956; J2060; J2405; J3475; J3480; J3490; J7030; J7042; J7050; J7060; Q9967